=== PATIENT | female | born 1945 ===

== ENCOUNTER 2023-04-06 13:14 | Inpatient (IN) | payer OTHER, MEDICAID ==
[~2023-04-06] VITALS: Ht 162.6 cm; Wt 64.0 kg
[2023-04-06] VITALS (8 sets, daily range): BP systolic 95–151; BP diastolic 42–66; PULSE 15–125; RESP 15–28; TEMP 98.1; O2SAT 98–100
[2023-04-06] MEDS: OXYGEN THERAPY IH SCH ×2 (13:57→22:00)
[2023-04-06 14:20] LABS: BASOPHILS % (AUTO) 0.2 % (0.0-2.0); EOSINOPHILS % (AUTO) 0 % (1.0-6.0); HEMATOCRIT 28.3 % (36-46); LYMPHOCYTES # (AUTO) 0.5 K/uL (1.0-4.8); LYMPHOCYTES % (AUTO) 7.8 % (22.0-44.0); MEAN CORPUSCULAR HEMOGLOBIN 30.7 pg (26.0-34.0); MEAN CORPUSCULAR HGB CONC 31.9 G/dL (31.0-37.0); MEAN CORPUSCULAR VOLUME 96 fL (80-100); MONOCYTES # (AUTO) 0.5 K/uL (0.1-1.0); MONOCYTES % (AUTO) 8.1 % (2.0-9.0); NEUTROPHILS % (AUTO) 83.9 % (40.0-70.0); PLATELET COUNT (AUTO) 192 K/uL (150-450); RED BLOOD CELL COUNT(AUTO) 2.94 MIL/uL (4.00-5.20); RED CELL DISTRIBUTION WIDTH 17.3 % (11.5-14.5)
[2023-04-06 14:23] LABS: ALANINE AMINOTRANSFERASE 18 U/L (12-78); ALBUMIN 2.3 g/dL (3.4-5.0); ALKALINE PHOSPHATASE 109 U/L (46-116); ANION GAP 10 mmol/L (8-16); ASPARTATE AMINOTRANSFERASE 37 U/L (15-37); BILIRUBIN,TOTAL 0.4 mg/dL (0.1-1.0); CALCIUM, TOTAL 8.5 mg/dL (8.8-10.5); CARBON DIOXIDE 29 mmol/L (22-29); CHLORIDE 91 mmol/L (98-107); CREATININE 8.48 mg/dL (0.60-1.30); GLOMERULAR FILTR. RATE CALC 5 mL/min (>60); GLUCOSE,RANDOM 66 mg/dL (70-110); LIPASE < 10 U/L (73-393); SODIUM SERUM 130 mmol/L (136-145); TOTAL PROTEIN, SERUM 7.5 g/dL (6.4-8.2)
[2023-04-06 14:26] LABS: POTASSIUM 6.2 mmol/L (3.5-5.1)
[2023-04-06 14:30] LABS: LACTIC ACID 1.1 mmol/L (0.4-2.0)
[2023-04-06] MEDS ORDERED: SODIUM BICARBONATE [ADULT] 8.4% 50 MEQ/50 ML SYRINGE IVP ONE (14:30)
[2023-04-06] MEDS ORDERED: CALCIUM GLUCONATE 100 MG/ML 10 ML IVP ONE (14:30)
[2023-04-06] MEDS ORDERED: DEXTROSE 50%-WATER 25 GM/50 ML SYRINGE IVP ONE ×2 (14:30→19:45)
[2023-04-06] MEDS ORDERED: INSULIN REGULAR, HUMAN 100 UNITS/ML IVP ONE (14:30)
[2023-04-06] MEDS ORDERED: FUROSEMIDE 40 MG/4 ML VIAL IVP ONE (14:30)
[2023-04-06 14:31] LABS: B-TYPE NATRIURETIC PEPTIDE > 5000 pg/mL (0-100)
[2023-04-06] MEDS ORDERED: ACETAMINOPHEN 325 MG TABLET PO PRN (14:45)
[2023-04-06] MEDS ORDERED: BISACODYL 10 MG RECTAL RECTAL SUPPOSITORY PR PRN (14:45)
[2023-04-06] MEDS ORDERED: ONDANSETRON HCL 4 MG/2 ML VIAL IVP PRN (14:45)
[2023-04-06] MEDS ORDERED: CALCIUM GLUCONATE 0.465 MEQ/ML 10 ML VIAL ONE (14:50)
[2023-04-06 15:01] LABS: COVID AG,FIA SOURCE NASOPHARYNGEAL
[2023-04-06 15:04] LABS: ABG BASE EXCESS 3.4 mmol/L (-2.0-3.0); ABG CARBOXYHEMOGLOBIN 0.3 % (0.0-1.5); ABG HCO3 27.1 mmol/L (22.0-26.0); ABG METHEMOGLOBIN 0.3 % (0.0-1.5); ABG OXYGEN CONTENT 11.9 mL/dL (15.0-23.0); ABG OXYGEN SATURATION 99.5 % (95.0-98.0); ABG OXYHEMOGLOBIN 98.9 % (94.0-100.0); ABG PCO2 55 mmHg (35-45); ABG PH 7.342 (7.35-7.450); ABG TOTAL HEMOGLOBIN 8.1 G/dL (12.0-18.0); PO2, ARTERIAL BG 236.6 mmHg (75.0-83.0); SOURCE, BLOOD GAS ARTERIAL; TEMPERATURE, FAHRENHEIT, BG 98.9 FAHREN (96.0-98.6)
[2023-04-06 15:08] LABS: ABG A-A DIFF O2 130.4 mmHg (10-20.0); O2 DEVICE,BLOOD GAS BIPAP (ROOM AIR); SITE, BLOOD GAS RT BRACHIAL; SPONTANEOUS VT, BG 654 ml
[2023-04-06 15:27] LABS: INFLUENZA TYPE A NEGATIVE FOR TYPE A (NEGATIVE); INFLUENZA TYPE B NEGATIVE FOR TYPE B (NEGATIVE)
[2023-04-06] MEDS: HEPARIN SODIUM,PORCINE 5,000 UNITS/ML VIAL SQ SCH ×2 (16:11→23:47)
[2023-04-06 16:51] LABS: GLUCOMETER DEV NAME(LOC) ER.6
[2023-04-06 19:07] LABS: ALBUMIN 2.2 g/dL (3.4-5.0); BILIRUBIN,TOTAL 0.4 mg/dL (0.1-1.0); CALCIUM, TOTAL 8.3 mg/dL (8.8-10.5); CREATININE 8.8 mg/dL (0.60-1.30); TOTAL PROTEIN, SERUM 6.6 g/dL (6.4-8.2)
[2023-04-06 19:15] LABS: POTASSIUM 6.1 mmol/L (3.5-5.1)
[2023-04-06] MEDS ORDERED: IOHEXOL 350 MG/ML 100 ML VIAL ONE (19:23)
[2023-04-06] MEDS ORDERED: SODIUM CHLORIDE 0.9% 100 ML ONE (19:23)
[2023-04-06] MEDS: DEXTROSE 25%-WATER 2.5 GM/10 ML SYRINGE IVP ONE ×2 (19:32→19:38)
[2023-04-06 19:46] LABS: GLUCOMETER DEV NAME(LOC) ER.6
[2023-04-06 22:06] LABS: GLUCOMETER DEV NAME(LOC) ER.6
[2023-04-07] VITALS (11 sets, daily range): BP systolic 105–136; BP diastolic 54–93; PULSE 87–138; RESP 14–26; TEMP 98–99
[2023-04-07] MEDS ORDERED: DiphenhydrAMINE HCL 50 MG/ML VIAL IVP ONE (00:15)
[2023-04-07] MEDS: HEPARIN SODIUM,PORCINE 5,000 UNITS/ML VIAL SQ SCH ×3 (08:00→23:53)
[2023-04-07] MEDS ORDERED: ATOR10TA69 PO (08:33)
[2023-04-07] MEDS ORDERED: GABA-529 PO (08:33)
[2023-04-07] MEDS ORDERED: PANT-31 PO (08:33)
[2023-04-07] MEDS ORDERED: PERCT PO (08:33)
[2023-04-07] MEDS ORDERED: CHOL25TA4 PO (08:33)
[2023-04-07] MEDS ORDERED: MEGE40TA33 PO (08:33)
[2023-04-07] MEDS: FAMOTIDINE 20 MG TABLET PO SCH (08:52)
[2023-04-07] MEDS: ETHYL ALCOHOL 62% ANTISEPTIC NASAL SANITIZER 0.6 ML AMPUL NASAL SCH ×2 (09:07→21:00)
[2023-04-07 09:34] LABS: BASOPHILS % (AUTO) 0.1 % (0.0-2.0); EOSINOPHILS % (AUTO) 0.5 % (1.0-6.0); HEMATOCRIT 25.7 % (36-46); HEMOGLOBIN 8.2 g/dL (12.0-16.0); LYMPHOCYTES # (AUTO) 0.5 K/uL (1.0-4.8); LYMPHOCYTES % (AUTO) 8.5 % (22.0-44.0); MEAN CORPUSCULAR HEMOGLOBIN 31.1 pg (26.0-34.0); MEAN CORPUSCULAR VOLUME 97 fL (80-100); MONOCYTES # (AUTO) 0.3 K/uL (0.1-1.0); MONOCYTES % (AUTO) 6.1 % (2.0-9.0); NEUTROPHILS # (AUTO) 4.6 K/uL (1.8-7.7); NEUTROPHILS % (AUTO) 84.8 % (40.0-70.0); PLATELET COUNT (AUTO) 176 K/uL (150-450); RED BLOOD CELL COUNT(AUTO) 2.64 MIL/uL (4.00-5.20); RED CELL DISTRIBUTION WIDTH 17.3 % (11.5-14.5)
[2023-04-07 09:52] LABS: ALBUMIN 2.2 g/dL (3.4-5.0); BILIRUBIN,TOTAL 0.5 mg/dL (0.1-1.0); CALCIUM, TOTAL 8.1 mg/dL (8.8-10.5); CREATININE 4.49 mg/dL (0.60-1.30); MAGNESIUM 2.2 mg/dL (1.80-2.40); PHOSPHORUS 3.6 mg/dL (2.5-4.9); POTASSIUM 4.3 mmol/L (3.5-5.1); TOTAL PROTEIN, SERUM 6.8 g/dL (6.4-8.2)
[2023-04-07] MEDS ORDERED: INSU100V12 SQ (11:18)
[2023-04-07] MEDS: FOLIC ACID/VIT B COMPLEX AND C TABLET PO SCH (17:39)
[2023-04-07 23:01] LABS: GLUCOMETER DEV NAME(LOC) 5S.1B
[2023-04-08] VITALS (14 sets, daily range): BP systolic 94–148; BP diastolic 47–99; PULSE 53–164; RESP 16–22; TEMP 97.8–98.7
[2023-04-08] MEDS: ETHYL ALCOHOL 62% ANTISEPTIC NASAL SANITIZER 0.6 ML AMPUL NASAL SCH ×2 (08:04→21:02)
[2023-04-08] MEDS: FAMOTIDINE 20 MG TABLET PO SCH (08:04)
[2023-04-08] MEDS: HEPARIN SODIUM,PORCINE 5,000 UNITS/ML VIAL SQ SCH ×3 (08:05→23:08)
[2023-04-08] MEDS: FOLIC ACID/VIT B COMPLEX AND C TABLET PO SCH (08:05)
[2023-04-08] MEDS ORDERED: AMIODARONE HCL 150 MG in DEXTROSE 5%-WATER 97 ML IV ONE (16:15)
[2023-04-08] MEDS ORDERED: AMIODARONE HCL 360 MG in DEXTROSE 5%-WATER 242.8 ML IV ONE (16:30)
[2023-04-08] MEDS: EPOETIN ALFA 10,000 UNITS/ML VIAL SQ SCH (17:25)
[2023-04-08 18:26] LABS: GLUCOMETER DEV NAME(LOC) 5N.2C
[2023-04-08] MEDS: METOPROLOL TARTRATE 25 MG TABLET PO SCH (20:39)
[2023-04-08] MEDS: MELATONIN 3 MG TABLET PO PRN (20:39)
[2023-04-08] MEDS ORDERED: AMIODARONE HCL 540 MG in DEXTROSE 5%-WATER 239.2 ML IV ONE (22:30)
[2023-04-09] VITALS (11 sets, daily range): BP systolic 110–162; BP diastolic 61–79; PULSE 84–125; RESP 17–24; TEMP 97.6–98.4; O2SAT 100
[2023-04-09 02:53] LABS: ABG BASE EXCESS -3.7 mmol/L (-2.0-3.0); ABG CARBOXYHEMOGLOBIN 0.9 % (0.0-1.5); ABG HCO3 21.5 mmol/L (22.0-26.0); ABG METHEMOGLOBIN 0.3 % (0.0-1.5); ABG OXYGEN CONTENT 11.6 mL/dL (15.0-23.0); ABG OXYGEN SATURATION 97.9 % (95.0-98.0); ABG OXYHEMOGLOBIN 96.7 % (94.0-100.0); ABG PCO2 45 mmHg (35-45); ABG PH 7.314 (7.35-7.450); ABG TOTAL HEMOGLOBIN 8.4 G/dL (12.0-18.0); PO2, ARTERIAL BG 104.8 mmHg (75.0-83.0); SOURCE, BLOOD GAS ARTERIAL; TEMPERATURE, FAHRENHEIT, BG 98.4 FAHREN (96.0-98.6)
[2023-04-09 02:54] LABS: ABG A-A DIFF O2 70.6 mmHg (10-20.0); O2 DEVICE,BLOOD GAS NASAL CANNULA (ROOM AIR); SITE, BLOOD GAS RT RADIAL
[2023-04-09] MEDS: ALBUTEROL SULFATE 2.5 MG/0.5 ML NEB SOLUTION NEB PRN (03:01)
[2023-04-09] MEDS: IPRATROPIUM BROMIDE 0.5 MG/2.5 ML NEB SOLUTION NEB PRN (03:01)
[2023-04-09 07:52] LABS: BASOPHILS % (AUTO) 0.1 % (0.0-2.0); EOSINOPHILS % (AUTO) 0 % (1.0-6.0); HEMATOCRIT 25.7 % (36-46); HEMOGLOBIN 7.8 g/dL (12.0-16.0); LYMPHOCYTES # (AUTO) 0.6 K/uL (1.0-4.8); LYMPHOCYTES % (AUTO) 8.1 % (22.0-44.0); MEAN CORPUSCULAR HEMOGLOBIN 30.7 pg (26.0-34.0); MEAN CORPUSCULAR HGB CONC 30.6 G/dL (31.0-37.0); MEAN CORPUSCULAR VOLUME 100 fL (80-100); MONOCYTES # (AUTO) 0.4 K/uL (0.1-1.0); MONOCYTES % (AUTO) 5.4 % (2.0-9.0); PLATELET COUNT (AUTO) 161 K/uL (150-450); RED BLOOD CELL COUNT(AUTO) 2.56 MIL/uL (4.00-5.20); RED CELL DISTRIBUTION WIDTH 18.6 % (11.5-14.5)
[2023-04-09 07:56] LABS: NEUTROPHILS % (AUTO) 86.4 % (40.0-70.0)
[2023-04-09 08:02] LABS: CREATININE 3.49 mg/dL (0.60-1.30)
[2023-04-09] MEDS: FAMOTIDINE 20 MG TABLET PO SCH (08:52)
[2023-04-09] MEDS: HEPARIN SODIUM,PORCINE 5,000 UNITS/ML VIAL SQ SCH (08:52)
[2023-04-09] MEDS: METOPROLOL TARTRATE 25 MG TABLET PO SCH ×2 (08:52→21:00)
[2023-04-09] MEDS: ETHYL ALCOHOL 62% ANTISEPTIC NASAL SANITIZER 0.6 ML AMPUL NASAL SCH ×2 (08:53→21:00)
[2023-04-09] MEDS: FOLIC ACID/VIT B COMPLEX AND C TABLET PO SCH (08:53)
[2023-04-09] MEDS ORDERED: AMIODARONE HCL 750 MG in DEXTROSE 5%-WATER 485 ML IV SCH (16:30)
[2023-04-09 19:21] LABS: GLUCOMETER DEV NAME(LOC) 5S.1B
[2023-04-09 19:21] LABS: GLUCOMETER DEV NAME(LOC) 5N.2C
[2023-04-09] MEDS: APIXABAN 2.5 MG TABLET PO SCH (21:00)
[2023-04-10] VITALS (11 sets, daily range): BP systolic 99–164; BP diastolic 60–83; PULSE 76–140; RESP 15–20; TEMP 97.7–98.2; O2SAT 97–100
[2023-04-10] MEDS: METOPROLOL TARTRATE 25 MG TABLET PO SCH ×2 (04:26→10:43)
[2023-04-10] MEDS: APIXABAN 2.5 MG TABLET PO SCH ×2 (08:57→20:27)
[2023-04-10] MEDS: FAMOTIDINE 20 MG TABLET PO SCH (08:57)
[2023-04-10] MEDS: FOLIC ACID/VIT B COMPLEX AND C TABLET PO SCH (08:57)
[2023-04-10] MEDS: ETHYL ALCOHOL 62% ANTISEPTIC NASAL SANITIZER 0.6 ML AMPUL NASAL SCH ×2 (08:59→20:28)
[2023-04-10] MEDS ORDERED: DEXTROSE 50%-WATER 25 GM/50 ML SYRINGE IVP PRN (10:45)
[2023-04-10] MEDS: ALBUTEROL SULFATE 2.5 MG/0.5 ML NEB SOLUTION NEB PRN (10:54)
[2023-04-10] MEDS: IPRATROPIUM BROMIDE 0.5 MG/2.5 ML NEB SOLUTION NEB PRN (10:54)
[2023-04-10 11:16] LABS: GLUCOMETER DEV NAME(LOC) 5S.1B
[2023-04-10] MEDS: INSULIN LISPRO 100 UNITS/ML SQ PRN ×3 (11:28→20:27)
[2023-04-10 11:31] LABS: GLUCOMETER DEV NAME(LOC) 5S.1B
[2023-04-10] MEDS: AMIODARONE HCL 200 MG TABLET PO SCH ×2 (15:44→21:00)
[2023-04-10] MEDS ORDERED: GABA-1181 PO (16:58)
[2023-04-10] MEDS ORDERED: SEVE800T17 PO (16:58)
[2023-04-10] MEDS ORDERED: AMLO5TAB66 PO (16:58)
[2023-04-11] VITALS (20 sets, daily range): BP systolic 100–161; BP diastolic 45–78; PULSE 56–104; RESP 18–24; TEMP 96.8–98.3; O2SAT 95–99
[2023-04-11 00:51] LABS: GLUCOMETER DEV NAME(LOC) 5N.2C
[2023-04-11 00:51] LABS: GLUCOMETER DEV NAME(LOC) 5N.2C
[2023-04-11] MEDS: AMIODARONE HCL 200 MG TABLET PO SCH ×4 (02:32→21:53)
[2023-04-11] MEDS: METOPROLOL TARTRATE 25 MG TABLET PO SCH ×3 (03:46→21:53)
[2023-04-11] MEDS: INSULIN LISPRO 100 UNITS/ML SQ PRN ×3 (05:40→22:01)
[2023-04-11 07:29] LABS: BASOPHILS % (AUTO) 0.1 % (0.0-2.0); EOSINOPHILS % (AUTO) 0.5 % (1.0-6.0); HEMATOCRIT 28.6 % (36-46); HEMOGLOBIN 8.7 g/dL (12.0-16.0); LYMPHOCYTES # (AUTO) 0.6 K/uL (1.0-4.8); LYMPHOCYTES % (AUTO) 8.6 % (22.0-44.0); MEAN CORPUSCULAR HEMOGLOBIN 30.3 pg (26.0-34.0); MEAN CORPUSCULAR HGB CONC 30.5 G/dL (31.0-37.0); MEAN CORPUSCULAR VOLUME 100 fL (80-100); MONOCYTES # (AUTO) 0.4 K/uL (0.1-1.0); MONOCYTES % (AUTO) 5.4 % (2.0-9.0); PLATELET COUNT (AUTO) 153 K/uL (150-450); RED BLOOD CELL COUNT(AUTO) 2.88 MIL/uL (4.00-5.20); RED CELL DISTRIBUTION WIDTH 18.1 % (11.5-14.5)
[2023-04-11 07:36] LABS: NEUTROPHILS % (AUTO) 85.4 % (40.0-70.0)
[2023-04-11 07:44] LABS: CALCIUM, TOTAL 7.9 mg/dL (8.8-10.5); CREATININE 5.15 mg/dL (0.60-1.30); MAGNESIUM 2.5 mg/dL (1.80-2.40); PHOSPHORUS 4.3 mg/dL (2.5-4.9); POTASSIUM 4.5 mmol/L (3.5-5.1)
[2023-04-11] MEDS: ALBUTEROL SULFATE 2.5 MG/0.5 ML NEB SOLUTION NEB SCH ×4 (08:29→20:00)
[2023-04-11] MEDS: IPRATROPIUM BROMIDE 0.5 MG/2.5 ML NEB SOLUTION NEB SCH ×4 (08:29→20:00)
[2023-04-11] MEDS: ETHYL ALCOHOL 62% ANTISEPTIC NASAL SANITIZER 0.6 ML AMPUL NASAL SCH ×2 (09:20→21:53)
[2023-04-11] MEDS ORDERED: SODIUM CHLORIDE 0.9% 1,000 ML ONE (10:46)
[2023-04-11 12:06] LABS: GLUCOMETER DEV NAME(LOC) 5N.1C
[2023-04-11] MEDS: FOLIC ACID/VIT B COMPLEX AND C TABLET PO SCH (14:45)
[2023-04-11] MEDS: FAMOTIDINE 20 MG TABLET PO SCH (14:45)
[2023-04-11] MEDS: APIXABAN 2.5 MG TABLET PO SCH ×2 (14:45→21:53)
[2023-04-11] MEDS: EPOETIN ALFA 10,000 UNITS/ML VIAL SQ SCH (14:47)
[2023-04-11 18:01] LABS: GLUCOMETER DEV NAME(LOC) 5S.2C
[2023-04-11 18:41] LABS: GLUCOMETER DEV NAME(LOC) 5N.2C
[2023-04-12] VITALS (12 sets, daily range): BP systolic 139–163; BP diastolic 59–72; PULSE 69–135; RESP 18–21; TEMP 97.1–98.2; O2SAT 100
[2023-04-12] MEDS: MELATONIN 3 MG TABLET PO PRN (00:32)
[2023-04-12 01:21] LABS: GLUCOMETER DEV NAME(LOC) 5N.2C
[2023-04-12] MEDS: FOLIC ACID/VIT B COMPLEX AND C TABLET PO SCH (08:26)
[2023-04-12] MEDS: AMIODARONE HCL 200 MG TABLET PO SCH ×2 (08:26→16:45)
[2023-04-12] MEDS: APIXABAN 2.5 MG TABLET PO SCH (08:26)
[2023-04-12] MEDS: FAMOTIDINE 20 MG TABLET PO SCH (08:26)
[2023-04-12] MEDS: ETHYL ALCOHOL 62% ANTISEPTIC NASAL SANITIZER 0.6 ML AMPUL NASAL SCH (08:30)
[2023-04-12] MEDS: IPRATROPIUM BROMIDE 0.5 MG/2.5 ML NEB SOLUTION NEB SCH ×3 (08:59→16:50)
[2023-04-12] MEDS: ALBUTEROL SULFATE 2.5 MG/0.5 ML NEB SOLUTION NEB SCH ×3 (08:59→16:51)
[2023-04-12] MEDS ORDERED: METOPROLOL TARTRATE 50 MG TABLET PO SCH (09:00)
[2023-04-12] MEDS: INSULIN LISPRO 100 UNITS/ML SQ PRN ×2 (12:16→17:25)
[2023-04-12] MEDS ORDERED: ALBU2SYR3 NEB (17:53)
[2023-04-12] MEDS ORDERED: ALBU2.5V39 NEB (17:54)
[2023-04-12] MEDS ORDERED: AMIO200T68 PO (17:55)
[2023-04-12] MEDS ORDERED: APIX2.5T PO (17:55)
[2023-04-12] MEDS ORDERED: ETHY1MED2 NASAL (17:56)
[2023-04-12] MEDS ORDERED: EPOE20002 SQ (17:56)
[2023-04-12] MEDS ORDERED: FOLI0.8T2 PO (17:58)
[2023-04-12] MEDS ORDERED: IPRA0.2S49 NEB (17:59)
[2023-04-12] MEDS ORDERED: METO50 PO (18:00)
[2023-04-12] MEDS ORDERED: ACET-3385 PO (18:01)
[2023-04-12] MEDS ORDERED: BISA-151 PO (18:02)
[2023-04-12] MEDS ORDERED: MELA3TAB89 PO (18:02)
[2023-04-12 21:07] LABS: GLUCOMETER DEV NAME(LOC) 5N.2C
[2023-04-13 02:21] LABS: GLUCOMETER DEV NAME(LOC) 5S.1B
[2023-04-13] MEDS ORDERED: ATORVASTATIN CALCIUM 10 MG TABLET PO SCH (09:00)
== END 2023-04-12 19:50 | DRG 291 ==
LOC: EMS 13:14 → ICUN 15:25 → ICU 19:30 → 5S 04-07 19:20
PROVIDERS: ADMIT Internal Medicine; ATTEND Internal Medicine
PROC: 5A09357 Assistance with Respiratory Ventilation, Less than 24 Consecutive Hours, Continuous Positive Airway Pressure (ICD-10-PCS; principal; 2023-04-06)
PROC: 5A1D70Z Performance of Urinary Filtration, Intermittent, Less than 6 Hours Per Day (ICD-10-PCS; 2023-04-06)
PROC: 5A1D70Z Performance of Urinary Filtration, Intermittent, Less than 6 Hours Per Day (ICD-10-PCS; 2023-04-08)
PROC: 5A1D70Z Performance of Urinary Filtration, Intermittent, Less than 6 Hours Per Day (ICD-10-PCS; 2023-04-11)
DX: I13.2 Hypertensive heart and chronic kidney disease with heart failure and with stage 5 chronic kidney disease, or end stage renal disease (principal); G93.41 Metabolic encephalopathy; I50.33 Acute on chronic diastolic (congestive) heart failure; J96.01 Acute respiratory failure with hypoxia; N18.6 End stage renal disease; E87.20 Acidosis, unspecified; E87.1 Hypo-osmolality and hyponatremia; Z20.822 Contact with and (suspected) exposure to COVID-19; E87.5 Hyperkalemia; I25.10 Atherosclerotic heart disease of native coronary artery without angina pectoris; I48.0 Paroxysmal atrial fibrillation; D63.1 Anemia in chronic kidney disease; J43.9 Emphysema, unspecified; E11.22 Type 2 diabetes mellitus with diabetic chronic kidney disease; F03.90 Unspecified dementia, unspecified severity, without behavioral disturbance, psychotic disturbance, mood disturbance, and anxiety; R62.7 Adult failure to thrive; I49.3 Ventricular premature depolarization; I08.2 Rheumatic disorders of both aortic and tricuspid valves; Z99.2 Dependence on renal dialysis; Z68.24 Body mass index [BMI] 24.0-24.9, adult
CPT/HCPCS: 36600; 71045; 71275; 80048; 80053; 82805; 82962; 83605; 83690; 83735; 83880; 84100; 84484; 85025; 87040; 87081; 87340; 87804; 90935; 92526; 92610; 93005; 93306; 93970; 94640; 94660; 99291; G0378; J0282; J0610; J0885; J1200; J1644; J1815; J1940; J3490; J7030; J7050; J7060; Q9967; 36415-L1; 36415-TC; J7613